=== PATIENT | female | born 1965 | race African-American/Black ===

== ENCOUNTER 2016-10-03 17:11 | Emergency (ER) | payer OTHER ==
[~2016-10-03 17:11] MED LIST: ATARAX50B PO; BACDS PO; BIST PO; CINNAMON; CINNAMONPO PO; COMP10B PO; CYMBALTA60 PO; GLUCOPHAGE1000 MG PO; GUMMY MULTIVITAMIN PO; HYDROCHLOROT12.5 MG PO; HYZAAR1 TAB PO; INTEGRA PLUS C1 EACH PO; KLOR-CON M2020 MEQ PO; MAGNESIUM PO; MAGOX4 PO; MICRO-K10 MEQ PO; MIRALAXPKT PO; MIRAPEX5 PO; MSCONTIN PO; MULTIPLE VIT PO; NEUR800 PO; NOVLOGPUMP SC; OXYCON20 PO; PCET PO; PROBIOTIC PO; PYR200 PO; ROXICODONE15 MG PO; SENTAB PO; SYN.05 PO; ULTRAM50 PO; VICTOZA18 MG/3 ML SC; VITAMIN B-122500 MCG SL; VITAMIN D1000 UNI1 PO; VITAMIN D31000 UNIT PO; VITAMIN K PO; VITE PO; ZOCOR40 PO
== END 2016-10-03 18:46 | disposition home or self-care (01) ==
LOC: ER 17:11
DX: T81.31XA Disruption of external operation (surgical) wound, not elsewhere classified, initial encounter (principal); I10 Essential (primary) hypertension; E11.9 Type 2 diabetes mellitus without complications; Z88.1 Allergy status to other antibiotic agents; Z88.2 Allergy status to sulfonamides; Z79.4 Long term (current) use of insulin; Z79.84 Long term (current) use of oral hypoglycemic drugs; Z79.899 Other long term (current) drug therapy
CPT/HCPCS: 99282